=== PATIENT | male | born 1990 | race Caucasian/White ===

== ENCOUNTER → 2019-12-16 09:19 | Outpatient (CLI) | payer BC, SELFPAY | PROVIDERS: PCP Family Medicine; Visit Provider Family Medicine | DX: G47.30 Sleep apnea, unspecified (principal); R06.83 Snoring; E66.9 Obesity, unspecified; R53.83 Other fatigue | CPT/HCPCS: G0399 ==

== ENCOUNTER → 2020-01-12 20:17 | Outpatient (CLI) | payer BC, SELFPAY | PROVIDERS: PCP Family Medicine; Visit Provider Family Medicine | DX: G47.30 Sleep apnea, unspecified (principal); R06.83 Snoring; E66.9 Obesity, unspecified | CPT/HCPCS: 95810 ==

== ENCOUNTER → 2021-03-29 12:17 | Outpatient (CLI) | payer SELFPAY ==
[2021-03-29 13:21] LABS: Basophils % 0.5 % (0.1-2.0); Eosinophils # 0.1 K/mm3 (0.0-0.4); Eosinophils % 1.3 % (0.1-12.0); Hematocrit 42.3 % (42.0-52.0); Hemoglobin 14.9 g/dL (14.1-18.0); Lymphocytes # 2.5 K/mm3 (0.7-4.5); Lymphocytes % 34.5 % (10-50); Mean Corpuscular HGB Conc 35.1 g/dL (31.8-35.4); Mean Corpuscular Hemoglobin 30.4 pg (27.0-31.2); Mean Corpuscular Volume 86.5 fl (80-94); Mean Platelet Volume 7.6 fl (7.4-10.4); Monocytes # 0.4 K/mm3 (0.1-1.0); Monocytes % 5.6 % (1.7-9.3); Neutrophils # 4.3 K/mm3 (1.8-7.8); Neutrophils % 58.1 % (37.0-80.0); Platelet Count 279 K/mm3 (142-424); Red Blood Count 4.89 M/mm3 (4.60-6.20); Red Cell Distribution Width 13.4 % (11.5-17.5); White Blood Count 7.3 K/mm3 (4.8-10.8)
[2021-03-29 13:31] LABS: Monoscreen (Rapid) Negative (Negative)
[2021-03-29 13:44] LABS: Chloride 106 mmol/L (98-107)
[2021-03-29 13:45] LABS: Potassium 4.2 mmoL/L (3.5-5.1); Sodium 143 mmol/L (136-145)
[2021-03-29 13:47] LABS: Alanine Aminotransferase 36 U/L (12-78); Aspartate Amino Transferase 43 U/L (17-59); Blood Urea Nitrogen 19 mg/dl (9-20); Estimated Glomerular Filt Rate 114 ml/min (>60); GFR (African American) 137 ML/MIN (>60)
[2021-03-29 13:48] LABS: Albumin Level 4.9 g/dl (3.5-5.0); Albumin/Globulin Ratio 1.8 (1.1-1.8); Alkaline Phosphatase 45 U/L (38-126); Anion Gap 16.2 mEq/L (5-15); Bilirubin,Total 1.3 mg/dl (0.2-1.3); Calcium 9.5 mg/dl (8.4-10.2); Carbon Dioxide 25 mmol/L (22.0-30.0); Globulin 2.7 g/dL (1.3-3.2); Glucose 89 mg/dl (74-100); Total Protein,Serum 7.6 g/dl (6.3-8.2)
[2021-03-29 13:52] LABS: Erythrocyte Sedimentation Rate 10 mm/hr (0-15)
[2021-03-29 14:20] LABS: Thyroid Stimulating Hormone 2.51 uIU/mL (0.465-4.68)
[2021-03-31 13:23] LABS: Antinuclear Antibodies, IFA Negative (.)
== END ==
PROVIDERS: PCP Family Medicine; Visit Provider Family Medicine
DX: R53.83 Other fatigue (principal)
CPT/HCPCS: 36415; 80053; 84443; 85025; 85651; 86038; 86318

== ENCOUNTER → 2021-04-22 13:39 | Outpatient (CLI) | payer SELFPAY ==
[2021-04-26 00:07] LABS: Rocky Mtn Spotted Fever, IgM 0.53 index (0.00-0.89)
[2021-04-26 06:05] LABS: RMSF, IgG, EIA Negative (Negative)
== END ==
PROVIDERS: Visit Provider Family Medicine
DX: M79.10 Myalgia, unspecified site (principal); R53.1 Weakness
CPT/HCPCS: 36415; 86609; 86618

== ENCOUNTER 2022-11-29 13:12 | Emergency (ER) | payer BC, SELFPAY ==
--- NOTE | 2022-11-29 13:18 | EXP.UTC ---
Discharge Plan Disposition Patient Disposition: Home, Self-Care Condition: Good Prescriptions Prescriptions: No Action No Known Home Medications Referrals Follow up/Referrals: Karie Joaquin MD [Primary Care Provider] - See instructions Activity Restrictions/Add. Instructions Additional Instructions/Restrictions: Follow up with your regular doctor. GO TO THE ER FOR ANY WORSENING SYMPTOMS Clinical Impressions Clinical Impression: Encounter for assessment of STD exposure Instructions Patient Instructions: The Facts About Genital Herpes Discharge ED Provider: Alhaji Costa [facility] General Stated complaint: Possible STD check up Time Seen by Provider: 11/29/22 13:17 History of Present Illness Provider Complaint: He states that he believes that he has been exposed to genital herpes through unprotected sexual activity. He denies any symptoms or outbreak. Related Data Home Medications Medication Instructions Recorded Confirmed No Known Home Medications 12/25/18 02/03/20 Allergies Allergy/AdvReac Type Severity Reaction Status Date / Time No Known Allergies Allergy Verified 11/29/22 13:40 [facility] Disclaimer: The information contained in this section may have been updated after the patient was seen, as this information can be updated by other users. Medical History Perforated ear drum Family History Other No significant family history Social History Smoking Status: Never smoker alcohol intake: current substance use type: denies use current occupational status: employed Travel in the last 8 weeks: None household members: family housing: house ROS Obtained: Yes All systems reviewed & no additional complaints except as documented Constitutional Constitutional: Denies chills and Denies fever(s) Eyes Eyes: Denies eye discharge ENT Ears, Nose, Mouth, and Throat: Denies dizziness, Denies otalgia and Denies sore throat Cardiovascular Cardiovascular: Denies chest pain Respiratory Respiratory: Denies shortness of breath, Denies chest congestion, Denies cough, Denies stridor and Denies wheezing Gastrointestinal Gastrointestingal: Denies abdominal pain, cramping, diarrhea, nausea or vomiting Genitourinary Male Genitourinary: Reports as per HPI, Denies difficulty urinating, Denies genital lesions, Denies genital pain, Denies urinary hesitancy and Denies urinary incontinence Musculoskeletal Musculoskeletal: Reports system reviewed and no additional complaints, except as documented and Denies arthralgias Integumentary/Breasts Skin/Breast: Denies rash Neurologic Neurologic: Denies dizziness and Denies paresthesias Allergic/Immunologic Allergic/Immunologic: Denies wheezing Physical Exam General General appearance: alert and in no apparent distress Head Head exam: atraumatic, normocephalic and normal inspection Eye Eye exam: Present normal appearance, PERRL and EOMI ENT ENT exam: Present normal exam, normal oropharynx, mucous membranes moist, TM's normal bilaterally and normal external ear exam Neck Neck exam: Present normal inspection, full ROM and trachea midline; Absent meningismus or lymphadenopathy Chest Chest inspection: Present normal inspection and symmetric chest wall rise; Absent tenderness Respiratory Respiratory exam: Present normal lung sounds bilaterally; Absent respiratory distress Cardiovascular Cardiovascular exam: Present regular rate and normal rhythm; Absent JVD Abdominal Exam Abdominal exam: Present soft and normal bowel sounds; Absent distention, tenderness or guarding Extremities Exam Extremities exam: Present normal inspection, full ROM and normal capillary refill; Absent calf tenderness Back Exam Back exam: Present normal inspection; Absent tenderness Neurological Exam Neurologi
[2022-11-29 13:30] VITALS: BP 171/87; PULSE 82; RESP 20; TEMP 36.9; O2SAT 98; BMI 34.7
[2022-11-29 14:24] LABS: Microscopic, Urine URINE MICROSCOPIC (MICROSCOPIC)
[2022-11-29 14:27] LABS: Appearance,Urine CLEAR (Clear); Bilirubin,Urine Negative (Negative); Blood, Urine 1+ (Negative); Color,Urine YELLOW (Yellow); Glucose,Urine (UA) Negative (Negative); Ketones,Urine Negative (Negative); Leukocyte Esterase,Urine Negative (Negative); Nitrate,Urine Negative (Negative); Protein,Urine Negative (Negative); Urobilinogen,Urine 0.2 EU/dl (0.2)
[2022-11-29 14:40] LABS: Bacteria,Urine Trace /lpf; Squamous Epithelial Cell,Urine Occasional #/hpf (0-5)
[2022-11-29 14:44] VITALS: BP 171/87; PULSE 82; RESP 20; TEMP 36.9; O2SAT 98
[2022-12-01 22:45] LABS: Neisseria gonorrhoeae, NAA Negative (Negative)
[2022-12-05 08:09] LABS: HSV-1 DNA Negative (Negative); HSV-2 DNA Negative (Negative)
== END 2022-11-29 14:43 | disposition home or self-care (01) ==
PROVIDERS: Emergency Provider Nurse Practitioner Family; PCP Family Medicine
DX: Z76.89 Persons encountering health services in other specified circumstances (principal)
CPT/HCPCS: 81001; 87491; 87529; 87591; 99212; G0463

== ENCOUNTER → 2022-12-14 13:20 | Outpatient (CLI) | payer BC, SELFPAY ==
--- NOTE | 2022-12-14 13:27 | CT_ITS ---
FINAL REPORT TECHNIQUE: Multiple axial CT sections were performed from the foramen magnum to the vertex. Coronal reformatted images were also obtained. Precontrast and postcontrast injection images were obtained. This study was performed with technique to keep radiation doses as low as reasonably achievable, (ALARA). Individualized dose reduction techniques using automated exposure control or adjustment of mA and/or kV according to the patient size were employed. CLINICAL HISTORY: HEADACHES COMPARISON: none FINDINGS: The ventricles are normal in size. There is no evidence of hemorrhage. No masses are identified. No extra-axial fluid collection is seen. The sinuses are normal. No osseous abnormality is seen on the bone window images. Postcontrast images demonstrate no abnormal enhancement. IMPRESSION: No acute intracranial abnormality. No abnormal enhancement. Reviewed, Interpreted and Dictated by Courtney Braga MD Transcribed by Suma Padilla Authenticated and [facility]
== END ==
LOC: RAD 13:22
PROVIDERS: PCP Family Medicine; Visit Provider Family Medicine
DX: R51.9 Headache, unspecified (principal)
CPT/HCPCS: 70470; Q9966

== ENCOUNTER 2023-01-31 20:31 | Emergency (ER) | payer BC, SELFPAY ==
--- NOTE | 2023-01-31 20:31 | ECG_ITS ---
APPROVED REPORT Exam: Resting ECG HR:96 bpm ECG Measurements Heart Rate 96 AXES MA 136 P 49 QRSd 111 QRS 36 QT 344 T 39 QTc 397 Conclusion SINUS RHYTHM INCOMPLETE RIGHT BUNDLE BRANCH BLOCK [90+ ms QRS DURATION, TERMINAL R IN V1/V2, 40+ ms S IN I/aVL/V4/V5/V6] BORDERLINE ECG UNCONFIRMED REPORT Electronically signed by : Mani Velasco MD 02/02/2023 14:23:21
[2023-01-31 20:35] VITALS: BP 133/92; PULSE 99; RESP 16; TEMP 36.7; O2SAT 100; BMI 34.9
[2023-01-31 21:01] VITALS: BP 132/78; PULSE 83; O2SAT 98
--- NOTE | 2023-01-31 21:24 | XR_ITS ---
PROCEDURE INFORMATION: Exam: XR Chest Exam date and time: 01/31/2023 9:27 PM Age: 32 years old Clinical indication: Sternal or substernal pain; Additional info: Chest pain TECHNIQUE: Imaging protocol: Radiologic exam of the chest. Views: 2 views. COMPARISON: CR CXR CHEST(2 VIEWS-NOT PORTABLE) 02/19/2016 12:15 AM FINDINGS: Lungs: Clear, symmetrically inflated lungs. Pleural spaces: No pleural effusion. No pneumothorax. Heart/Mediastinum: Cardiac silhouette is normal in size for technique. Bones/joints: Age appropriate. IMPRESSION: No acute cardiopulmonary abnormality.
[2023-01-31 21:30] VITALS: BP 134/73; PULSE 83; O2SAT 99
[2023-01-31 21:33] LABS: Basophils # 0.1 K/mm3 (0-0.2); Basophils % 0.7 % (0.1-2.0); Eosinophils # 0.2 K/mm3 (0.0-0.4); Hematocrit 45.4 % (42.0-52.0); Hemoglobin 15.2 g/dL (14.1-18.0); Lymphocytes # 3.5 K/mm3 (0.7-4.5); Lymphocytes % 33.6 % (10-50); Mean Corpuscular HGB Conc 33.6 g/dL (31.8-35.4); Mean Corpuscular Hemoglobin 29.7 pg (27.0-31.2); Mean Corpuscular Volume 88.5 fl (80-94); Mean Platelet Volume 8.1 fl (7.4-10.4); Monocytes # 0.8 K/mm3 (0.1-1.0); Neutrophils # 5.7 K/mm3 (1.8-7.8); Neutrophils % 55.7 % (37.0-80.0); Platelet Count 292 K/mm3 (142-424); Red Blood Count 5.13 M/mm3 (4.60-6.20); Red Cell Distribution Width 14.1 % (11.5-17.5); White Blood Count 10.3 K/mm3 (4.8-10.8)
[2023-01-31 21:34] LABS: Chloride 102 mmol/L (98-107); Potassium 3.4 mmoL/L (3.5-5.1); Sodium 142 mmol/L (136-145)
[2023-01-31 21:36] LABS: Blood Urea Nitrogen 17 mg/dl (9-20); Creatinine Clearance Estimated 200 mL/min (50-200); Estimated Glomerular Filt Rate 98 ml/min (>60); GFR (African American) 118 ML/MIN (>60)
[2023-01-31 21:37] LABS: Alanine Aminotransferase 43 U/L (12-78); Albumin Level 4.9 g/dl (3.5-5.0); Albumin/Globulin Ratio 1.4 (1.1-1.8); Alkaline Phosphatase 44 U/L (38-126); Anion Gap 14.4 mEq/L (5-15); Aspartate Amino Transferase 41 U/L (17-59); Bilirubin,Total 1.1 mg/dl (0.2-1.3); Calcium 9.3 mg/dl (8.4-10.2); Carbon Dioxide 29 mmol/L (22.0-30.0); Globulin 3.5 g/dL (1.3-3.2); Glucose 84 mg/dl (74-100); Total Protein,Serum 8.4 g/dl (6.3-8.2)
[2023-01-31 21:42] LABS: C-Reactive Protein 5.2 mg/L (0-4)
[2023-01-31 21:53] LABS: Troponin I < 0.01 ng/ml (0.00-0.034)
[2023-01-31 21:58] LABS: Erythrocyte Sedimentation Rate 13 mm/hr (0-15)
--- NOTE | 2023-01-31 22:01 | PC.NURSE ---
PATIENT ASK HOW LONG IT WOULD TAKE FOR THE XRAYS TO BED, I EXPLAINED THAT OUT IMAGES ARE SENT OUT TO [facility], THEY DO NOT WANT TO WASTE A WHOLE NIGHT SITTING HERE DR. HORAN IS GOING INTO THE ROOM TO TALK TO THE PATIENT AND FAMILY AT THIS TIME
--- NOTE | 2023-01-31 22:11 | [facility].EDCP ---
Discharge Plan Disposition Patient Disposition: Home, Self-Care Chief Complaint: Chest Pain Prescriptions Prescriptions: No Action No Known Home Medications Referrals Follow up/Referrals: Karie Joaquin MD [Primary Care Provider] - See instructions Clinical Impressions Clinical Impression: Atypical chest pain Instructions Patient Instructions: DI for Atypical Chest Pain Discharge ED Provider: Alexandria RIVAS)Ambrosio Chest Pain HPI General Chief Complaint: Chest Pain Stated Complaint: chest pain Time Seen by Provider: 01/31/23 22:11 Mode of Arrival: Family Vehicle Source of Information: Patient, Parent(s) and Medical Record Limitations: No Limitations Description of Symptoms (Recalled from ER Triage Doc. by RN): 32 yo male presents with cc of right anterior chest pain that radiates up into the right side of his neck. Patient thinks he lifted something incorrectly however at the reccommendation o fhis father came for cardiac evaluation. Patient is alert,oriented x4, denies medical history/issues/meds/extracurricular drugs History of Present Illness HPI narrative: pt with rt sided chest pain which started this am with reported feeling of sob - pt with recent rt upper ext tatoo and concerned could be m/s in relation to arm positioning - development specialist pleuritic pain - no hx of ht dis and no pul emboli complaint: chest pain Onset (ago): hour(s) Duration: intermittent Activity at onset: during rest Pain location: right chest Severity: moderate Quality: sharp Exacerbating factors: movement Risk Factors for CAD: Family Hx of CAD Treatments prior to or on arrival for Cardiac Chest Pain: none EMANI Score for Non-Stemi Age of Patient: 30-39 years old Heart Rate: 70-89 bpm Systolic Blood Pressure: 120-139 mmhg Serum Creatinine: 0.80-1.19 mg/dl CHF [place] Class: I-No CHF Other Risk Factors: None Non-Stemi Risk Score: 58 Risk Stratification: 1-108 = Low Risk Related Data Home Medications Medication Instructions Recorded Confirmed No Known Home Medications 12/25/18 02/03/20 Allergies Allergy/AdvReac Type Severity Reaction Status Date / Time No Known Allergies Allergy Verified 11/29/22 13:40 [facility] Disclaimer: The information contained in this section may have been updated after the patient was seen, as this information can be updated by other users. Medical History Perforated ear drum Family History Other No significant family history Social History Smoking Status: Unknown if ever smoked alcohol intake: current substance use type: denies use current occupational status: employed Travel in the last 8 weeks: None household members: family housing: house ROS Obtained: Yes All systems reviewed & no additional complaints except as documented Physical Exam General General appearance: alert Head Head exam: normocephalic Eye Eye exam: Present PERRL and EOMI ENT ENT exam: Present mucous membranes moist Neck Neck exam: Present trachea midline Chest Chest inspection: Absent tenderness Respiratory Respiratory exam: Present normal lung sounds bilaterally; Absent respiratory distress Cardiovascular Cardiovascular exam: Present regular rate; Absent systolic murmur Abdominal Exam Abdominal exam: Present soft Extremities Exam Extremities exam: Present full ROM Neurological Exam Neurological exam: Present alert, oriented X3 and CN II-XII intact; Absent motor sensory deficit Psychiatric Psychiatric exam: Present normal affect Skin Skin exam: Absent rash Medical Decision Making Medical Records Medical records reviewed: Yes I reviewed the patient's medical records. [place] Inquiry Pt receiving controlled substance: No Vital Signs: 01/31/23 20:35 01/31/23 21:01 01/31/23 21:30 Temperature 98.1 F Temperature Sour
[2023-01-31 22:26] VITALS: BP 130/75; PULSE 85; PULSE 88; RESP 19; TEMP 36.9; O2SAT 98
== END 2023-01-31 22:35 | disposition home or self-care (01) ==
PROVIDERS: Emergency Provider Emergency Medicine; PCP Family Medicine
DX: R07.89 Other chest pain (principal)
CPT/HCPCS: 71046; 80053; 84484; 85025; 85651; 86140; 93005; 96374; 99285